=== PATIENT | male | born 1970 | race Caucasian/White ===

== ENCOUNTER → 2021-07-29 | Day surgery (SDC) | payer OTHER ==
[~2021-07-29] MED LIST: AMOXICILLIN500 M1 PO; CILOXAN5 ML OTIC; ZOFRAN8 MG PO
== END | disposition home or self-care (01) ==
LOC: ADM 07-22 10:00 → CIR.AMB 06:46
PROVIDERS: ATTEND Otolaryngology Otology & Neurotology
DX: H71.22 Cholesteatoma of mastoid, left ear (principal); H90.A32 Mixed conductive and sensorineural hearing loss, unilateral, left ear with restricted hearing on the contralateral side; H72.2X2 Other marginal perforations of tympanic membrane, left ear; Z20.822 Contact with and (suspected) exposure to COVID-19